=== PATIENT | female | born 1995 | race Caucasian/White ===

== ENCOUNTER 2020-11-06 04:05 | Inpatient (IN) | payer OTHER ==
[2020-11-06] MEDS ORDERED: Ampicillin 2 GM in Sodium Chloride 0.9% 100 ML IV ONE (04:21)
[2020-11-06] MEDS ORDERED: Carboprost Tromethamine 250 MCG/1 ML Amp IM PRN (04:21)
[2020-11-06] MEDS ORDERED: Nalbuphine 10 MG/1 ML Vial IVPUSH PRN (04:21)
[2020-11-06] MEDS ORDERED: Butorphanol 1 MG/ML SDV IVPUSH PRN (04:21)
[2020-11-06] MEDS ORDERED: Sodium Chloride 0.9% 2.5 ML Syringe FLUSH PRN (04:21)
[2020-11-06] MEDS ORDERED: Sodium Chloride 0.9% 10 ML SDV IV PRN (04:21)
[2020-11-06] MEDS ORDERED: Misoprostol 200 MCG Tab PO PRN (04:21)
[2020-11-06] MEDS ORDERED: Water For Irrigation,Sterile 1,000 ML Container IRR PRN (04:21)
[2020-11-06] MEDS ORDERED: Tranexamic Acid 1,000 MG in Sodium Chloride 0.9% 100 ML IV PRN (04:21)
[2020-11-06] MEDS ORDERED: Sodium Chloride 0.9% 10 ML Syringe FLUSH PRN (04:21)
[2020-11-06] MEDS ORDERED: Methylergonovine 0.2 MG/1 ML Amp IM PRN (04:21)
[2020-11-06] MEDS ORDERED: Lidocaine 1% 50 ML MDV INJECT PRN (04:21)
[2020-11-06] MEDS ORDERED: Oxytocin/0.9 % Sodium Chloride 30 UNIT/500 ML BAG IV SCH (04:30)
[2020-11-06] MEDS ORDERED: Lactated Ringers 1,000 ML IV SCH (04:30)
[2020-11-06] MEDS ORDERED: Ampicillin 2 GM Vial ONE (04:37)
[2020-11-06] MEDS ORDERED: Sodium Chloride 0.9% 100 ML ONE (04:37)
[2020-11-06] MEDS ORDERED: Bisacodyl 10 MG Supp RECTAL PRN (06:41)
[2020-11-06] MEDS ORDERED: Witch Hazel Medicated Pads 40/Jar TOP PRN (06:41)
[2020-11-06] MEDS ORDERED: Benzocaine/Menthol 20%-0.5% Spray 78 GM Cannister TOP PRN (06:41)
[2020-11-06] MEDS ORDERED: oxyCODONE 5 MG Tab PO PRN (06:41)
[2020-11-06] MEDS ORDERED: Ibuprofen 400 MG Tab PO PRN (06:41)
[2020-11-06] MEDS ORDERED: Acetaminophen 500 MG Tab PO PRN (06:41)
[2020-11-06] MEDS ORDERED: Lanolin 100% Cream 7 GM Tube TOP PRN (06:41)
--- NOTE | 2020-11-06 06:51 | PCM.DEL ---
L & D Note - General Info Date of Service: 11/06/20 Mother's Due Date: 11/13/20 - Delivery Note Labor: Spontaneous Delivery Outcome: Livebirth Infant Delivery Method: Spontaneous Vaginal Delivery-Single Delivery Mode: Spontaneous Presentation: Left Occiput Anterior (GENE) Nuchal Cord: Present (nuchal x3) Anesthesia Type: None Amniotic Fluid Description: Clear Episiotomy Type: None Laceration: 3rd Degree, Perineal Suture type: Vicryl Suture size: 2-0 Placenta: Intact, Spontaneous Cord: 3 Vessels Estimated Blood Loss: 300 Resuscitation Needed: Yes [place]: Suctioned, Bulb Syringe, Cathether, Stimulated, Warmed, Hollis Used, Warmer Used Provider: Cary Wood Score 1 min: 7 Score 5 min: 8 Score 10 min: 9 Second Stage Interventions: Reports: Second Nurse Assessed Progress of Descent, Second Nurse Reviewed Contraction Pattern, Second Nurse Reviewed Heart Tones, Encouragement Given, Laboring Down, Pushing Effectively, Pushing, Left Side, Pushing, Pulls Own Legs Back, Pushing, Stirrups/Leg Supports Delivery Comments (Free Text/Narrative):: Delivery of male, [id number] at [id number] - General Info Date of Service: 11/06/20 - Patient Data Weight - Most Recent: 193 lb Lab Results Last 24 Hours: Laboratory Results - last 24 hr 11/06/20 11/06/20 11/06/20 Range/Units 04:30 04:30 04:41 WBC 12.83 H (4.0-11.0) K/uL RBC 4.42 (4.30-5.90) M/uL Hgb 12.9 (12.0-16.0) g/dL Hct 38.1 (36.0-46.0) % MCV 86.2 (80.0-98.0) fL MCH 29.2 (27.0-32.0) pg MCHC 33.9 (31.0-37.0) g/dL RDW Std Deviation 43.1 (28.0-62.0) fl RDW Coeff of Reed 14 (11.0-15.0) % Plt Count 214 (150-400) K/uL MPV 11.30 (7.40-12.00) fL Nucleated RBC % 0.0 /100WBC Nucleated RBCs # 0 K/uL SARS-CoV-2 RNA ([place]) NEGATIVE (NEGATIVE) Blood Type O POSITIVE Antibody Screen NEGATIVE Med Orders - Current: Current Medications Butorphanol Tartrate (Butorphanol 1 Mg/Ml Sdv) 1 mg IVPUSH Q1H PRN PRN Reason: Pain (severe 7-10) Oxytocin/Sodium Chloride (Oxytocin 30 Unit/500 Ml-Ns) 30 unit in 500 mls @ 999 mls/hr IV TITRATE [facility] Tranexamic Acid 1,000 mg/ (Sodium Chloride) 110 mls @ 660 mls/hr IV ONETIME PRN PRN Reason: Bleeding Lactated Ringer's (Ringers, Lactated) 1,000 mls @ 150 mls/hr IV ASDIRECTED SACHIN Last Admin: 11/06/20 04:40 Dose: 150 mls/hr Documented by: Lidocaine HCl (Lidocaine 1% 50 Ml Mdv) 50 ml INJECT ONETIME PRN PRN Reason: Laceration repair Last Admin: 11/06/20 06:17 Dose: 50 ml Documented by: Methylergonovine Maleate (Methylergonovine 0.2 Mg/1 Ml Amp) 0.2 mg IM ASDIRECTED PRN PRN Reason: Post Hemorrhage Nalbuphine HCl (Nalbuphine 10 Mg/1 Ml Vial) 10 mg IVPUSH Q1H PRN PRN Reason: Pain (severe 7-10) Sodium Chloride (Sodium Chloride 0.9% 10 Ml Syringe) 10 ml FLUSH ASDIRECTED PRN PRN Reason: Keep Vein Open Sodium Chloride (Sodium Chloride 0.9% 2.5 Ml Syringe) 2.5 ml FLUSH ASDIRECTED PRN PRN Reason: Keep Vein Open Sodium Chloride (Sodium Chloride 0.9% 10 Ml Sdv) 10 ml IV ASDIRECTED PRN PRN Reason: IV Use Sterile Water (Water For Irrigation,Sterile 1,000 Ml Container) 1,000 ml IRR ASDIRECTED PRN PRN Reason: delivery Discontinued Medications Ampicillin Sodium (Ampicillin 2 Gm Vial) Confirm Administered Dose 2 gm .ROUTE .STK-MED ONE Stop: 11/06/20 04:38 Last Admin: 11/06/20 04:45 Dose: 2 gm Documented by: Carboprost Tromethamine (Carboprost Tromethamine 250 Mcg/1 Ml Amp) 250 mcg IM ASDIRECTED PRN PRN Reason: Post Hemorrhage Ampicillin Sodium 2 gm/ Sodium (Chloride) 100 mls @ 200 mls/hr IV ONETIME ONE Stop: 11/06/20 04:50 Ampicillin Sodium 1 gm/ Sodium (Chloride) 50 mls @ 100 mls/hr IV Q4H SACHIN Sodium Chloride (Normal Saline) Confirm Administered Dose 100 mls @ as directed .ROUTE .STK-MED ONE Stop: 11/06/20 04:38 Last Admin: 11/06/20 04:45 Dose: 200 mls/hr Documented by: Misoprostol (Misoprostol 200 Mcg Tab) 200 mcg PO ONETIME PRN PRN Reason: Post Hemorrhage - Problem List & Annotations (1) Vaginal delivery SNOMED Code(s): 190911910 Code(s): O80 - ENCOUNTER FOR FULL-TERM UNCOMPLICATED DELIVERY Status: Acute Current Visit: Yes - Problem List Review Problem List Initiated/Reviewed/Updated: Yes - Assessment Assessment:: Pt is a 24yo G1 now P1 female s/p , PPD0 - Plan Plan:: Rh+, Ab screen negative, rubella immune Tdap received at 28w, GBS positive with 1 dose antibiotics given PO pain medications ordered PRN Regular diet as tolerated Encourage ambulation and fluid intake when able nursing assistance PRN Dispo: stable, admit to , Anticipate routine PP cares with discharge 24-48 hours post delivery
[2020-11-06] MEDS ORDERED: Ampicillin 1 GM in Sodium Chloride 0.9% 50 ML IV SCH (08:30)
[2020-11-06] MEDS: Docusate Sodium 100 MG Cap PO PRN ×2 (09:17→20:34)
[2020-11-06] MEDS: Ibuprofen 800 MG Tab PO PRN ×2 (09:32→20:34)
--- NOTE | 2020-11-06 11:47 | OR ---
SURGEON: Cary Wood M.D. DATE OF PROCEDURE: 11/06/2020 PREOPERATIVE DIAGNOSES: 1. A 39-week intrauterine . 2. Active labor. 3. Group B strep positive. POSTOPERATIVE DIAGNOSES: 1. A 39-week intrauterine . 2. Active labor. 3. Group B strep positive. PROCEDURE: Spontaneous vaginal delivery, third-degree midline laceration repair. PRIMARY SURGEON: Cary Wood M.D. ANESTHESIA: Local. ESTIMATED BLOOD LOSS: 300 mL. COMPLICATIONS: None known. FINDINGS: Viable male. scores of 7 at 1 minute and 8 at 5 minutes. Weight 7 pounds 10 ounces. Spontaneous delivery, intact placenta, 3-vessel cord. DISPOSITION: Infant to nursery, mom in LDRP. PROCEDURE DETAILS: Bere is a 24-year-old G1, P0, at 39 weeks' gestation who presented on the global sales executive of 11/06/2020, with contractions since midnight and which intensified after 3:00 a.m. Upon presentation, she was found to be 8 cm dilated. She quickly progressed to 10 cm dilatation, at +2 station. heart tones were category 1. The patient was admitted, and routine labs were drawn. COVID was negative. She did receive a single dose of ampicillin. Shortly thereafter, began pushing efforts and was able to push to a +4 station with delivery. The patient was placed in modified dorsal lithotomy position, prepped and draped in the usual aseptic manner. With pushing efforts, was able to deliver infant's head atraumatically spontaneously, followed by anterior shoulder, posterior shoulder, and the remainder of the body. Nuchal cord x3 which was loose was reduced manually. 's oropharynx and nares were bulb suctioned. Infant was handed off to her mother with attending nursery staff at her side. After a delay, cord was clamped x2 and cut. Cord arterial, cord venous, cord blood sampling obtained. Light pressure was applied. The placenta was delivered spontaneously intact. Vigorous fundal uterine massage was then applied while 30 units Pitocin was delivered in 500 mL of IV fluid. Upon inspection of cervix, vaginal sidewall, and perineum, there was found to be a third-degree midline laceration which was repaired by reapproximating the levator muscle with [id number] sutures x3 using 2-0 Vicryl, followed by repair of the remainder of second-degree in the usual fashion. The region had been prepped with approximately 15 mL of 1% lidocaine prior to repair. Uterus remained firm. Sponge, instrument, and needle count was correct. Hemostasis evident. Patient remained in LDRP and to nursery. JOSTIN / GIFTY /[id number]
[2020-11-06] MEDS: Acetaminophen 500 MG Tab PO PRN ×2 (16:38→20:36)
[2020-11-07] MEDS: Ibuprofen 800 MG Tab PO PRN ×3 (05:17→20:25)
--- NOTE | 2020-11-07 08:07 | PCM.PNPP ---
- General Info Date of Service: 11/07/20 Functional Status: Reports: Pain Controlled, Tolerating Diet, Ambulating, Urinating - Review of Systems General: Reports: Fatigue. Denies: Fever, Weakness Pulmonary: Denies: Shortness of Breath Cardiovascular: Denies: Chest Pain, Palpitations, Lightheadedness Gastrointestinal: Denies: Abdominal Pain, Nausea, Vomiting Genitourinary: Denies: Flank Pain Musculoskeletal: Reports: No Symptoms Skin: Reports: No Symptoms Neurological: Reports: No Symptoms Psychiatric: Reports: No Symptoms - General Info Date of Service: 11/07/20 - Patient Data Vital Signs - Most Recent: Last Vital Signs Temp 36.3 C 11/07/20 05:00 Pulse 93 11/07/20 05:00 Resp 12 11/07/20 05:00 BP 122/67 11/07/20 05:00 Pulse Ox 96 11/07/20 05:00 Weight - Most Recent: 87.543 kg Lab Results - Last 24 Hours: Laboratory Results - last 24 hr 11/07/20 Range/Units 06:27 Hgb 9.7 L (12.0-16.0) g/dL Hct 28.4 L (36.0-46.0) % Med Orders - Current: Current Medications Acetaminophen (Acetaminophen 500 Mg Tab) 500 mg PO Q4H PRN PRN Reason: Pain (mild 1-3) Acetaminophen (Acetaminophen 500 Mg Tab) 1,000 mg PO Q4H PRN PRN Reason: Pain (mild 1-3) Last Admin: 11/06/20 20:36 Dose: 1,000 mg Documented by: Benzocaine/Menthol (Benzocaine/Menthol 20%-0.5% [place] 78 Gm Cannister) 78 gm TOP ASDIRECTED PRN PRN Reason: Perineal Comfort Measure Last Admin: 11/06/20 09:16 Dose: 1 bottle Documented by: Bisacodyl (Bisacodyl 10 Mg Supp) 10 mg RECTAL ONETIME PRN PRN Reason: Constipation Butorphanol Tartrate (Butorphanol 1 Mg/Ml Sdv) 1 mg IVPUSH Q1H PRN PRN Reason: Pain (severe 7-10) Docusate Sodium (Docusate Sodium 100 Mg Cap) 100 mg PO Q12H PRN PRN Reason: Constipation Last Admin: 11/06/20 20:34 Dose: 100 mg Documented by: Emollient Ointment (Lanolin 100% Cream 7 Gm Tube) 0 gm TOP ASDIRECTED PRN PRN Reason: Sore Nipples Last Admin: 11/06/20 09:16 Dose: 1 applic Documented by: Oxytocin/Sodium Chloride (Oxytocin 30 Unit/500 Ml-Ns) 30 unit in 500 mls @ 999 mls/hr IV TITRATE [facility] Last Infusion: 11/06/20 06:28 Dose: 250 mls/hr Documented by: Tranexamic Acid 1,000 mg/ (Sodium Chloride) 110 mls @ 660 mls/hr IV ONETIME PRN PRN Reason: Bleeding Lactated Ringer's (Ringers, Lactated) 1,000 mls @ 150 mls/hr IV ASDIRECTED [facility] Last Admin: 11/06/20 04:40 Dose: 150 mls/hr Documented by: Ibuprofen (Ibuprofen 400 Mg Tab) 400 mg PO Q4H PRN PRN Reason: Pain (mild 1-3) Ibuprofen (Ibuprofen 800 Mg Tab) 800 mg PO Q6H PRN PRN Reason: Pain (mild 1-3) Last Admin: 11/07/20 05:17 Dose: 800 mg Documented by: Lidocaine HCl (Lidocaine 1% 50 Ml Mdv) 50 ml INJECT ONETIME PRN PRN Reason: Laceration repair Last Admin: 11/06/20 06:17 Dose: 50 ml Documented by: Methylergonovine Maleate (Methylergonovine 0.2 Mg/1 Ml Amp) 0.2 mg IM ASDIRECTED PRN PRN Reason: Post Hemorrhage Nalbuphine HCl (Nalbuphine 10 Mg/1 Ml Vial) 10 mg IVPUSH Q1H PRN PRN Reason: Pain (severe 7-10) Oxycodone HCl (Oxycodone 5 Mg Tab) 5 mg PO Q2H PRN PRN Reason: Pain (severe 7-10) Sodium Chloride (Sodium Chloride 0.9% 10 Ml Syringe) 10 ml FLUSH ASDIRECTED PRN PRN Reason: Keep Vein Open Sodium Chloride (Sodium Chloride 0.9% 2.5 Ml Syringe) 2.5 ml FLUSH ASDIRECTED PRN PRN Reason: Keep Vein Open Sodium Chloride (Sodium Chloride 0.9% 10 Ml Sdv) 10 ml IV ASDIRECTED PRN PRN Reason: IV Use Sterile Water (Water For Irrigation,Sterile 1,000 Ml Container) 1,000 ml IRR ASDIRECTED PRN PRN Reason: delivery Witch Arlyn (Witch Arlyn Medicated Pads 40/Jar) 1 pad TOP ASDIRECTED PRN PRN Reason: comfort care Last Admin: 11/06/20 09:15 Dose: 1 container Documented by: Discontinued Medications Ampicillin Sodium (Ampicillin 2 Gm Vial) Confirm Administered Dose 2 gm .ROUTE .STK-MED ONE Stop: 11/06/20 04:38 Last Admin: 11/06/20 04:45 Dose: 2 gm Documented by: Carboprost Tromethamine (Carboprost Tromethamine 250 Mcg/1 Ml Amp) 250 mcg IM ASDIRECTED PRN PRN Reason: Post Hemorrhage Ampicillin Sodium 2 gm/ Sodium (Chloride) 100 mls @ 200 mls/hr IV ONETIME ONE Stop: 11/06/20 04:50 Ampicillin Sodium 1 gm/ Sodium (Chloride) 50 mls @ 100 mls/hr IV Q4H SACHIN Sodium Chloride (Normal Saline) Confirm Administered Dose 100 mls @ as directed .ROUTE .STK-MED ONE Stop: 11/06/20 04:38 Last Admin: 11/06/20 04:45 Dose: 200 mls/hr Documented by: Misoprostol (Misoprostol 200 Mcg Tab) 200 mcg PO ONETIME PRN PRN Reason: Post Hemorrhage - Infant Interaction Support Person: Significant Other - Recovery Exam Fundal Tone: Firm Fundal Level: 1 Fingerbreadths Below Umbilicus Fundal Placement: Midline Lochia Amount: Scant Lochia Color: Rubra/Red Perineum Description: Other (see below) Other Perinuem Description: 3rd degree laceration Episiotomy/Laceration: Approximated Bladder Status: Voiding Urinary Elimination: Voided - Exam General: Alert, Oriented Lungs: Normal Respiratory Effort Cardiovascular: Regular Rate, Regular Rhythm GI/Abdominal Exam: Normal Bowel Sounds, Soft Extremities: Pedal Edema. No: Hermes's Sign Skin: Warm, Dry, Intact Neurological: No New Focal Deficit Psy/Mental Status: Alert, Normal Affect, Normal Mood - Problem List & Annotations (1) Vaginal delivery SNOMED Code(s): 957377328 Code(s): O80 - ENCOUNTER FOR FULL-TERM UNCOMPLICATED DELIVERY Status: Acute Current Visit: Yes - Problem List Review Problem List Initiated/Reviewed/Updated: Yes - Assessment Assessment:: Pt is a 24yo G1 now P1 female s/p with 3rd MLL repaired - Plan Plan:: Continue PP cares. VS are stable, labs reassuring.
[2020-11-07] MEDS: Acetaminophen 500 MG Tab PO PRN (18:05)
[2020-11-07] MEDS: Docusate Sodium 100 MG Cap PO PRN (20:27)
--- NOTE | 2020-11-08 07:36 | PCM.PNPP ---
<PrettyDaylin - Last Filed: 11/08/20 07:33> - General Info Date of Service: 11/08/20 Admission Dx/Problem (Free Text): Subjective Update: Pt doing well. Pain controlled. Ambulating okay. Urinating okay. No BMs but taking stool softener Functional Status: Reports: Pain Controlled - Review of Systems Pulmonary: Reports: No Symptoms Cardiovascular: Reports: No Symptoms Gastrointestinal: Reports: No Symptoms Genitourinary: Reports: No Symptoms - General Info Date of Service: 11/08/20 - Patient Data Vital Signs - Most Recent: Last Vital Signs Temp 98 F 11/08/20 04:00 Pulse 85 11/08/20 04:00 Resp 14 11/08/20 04:00 BP 117/64 11/08/20 04:00 Pulse Ox 98 11/08/20 04:00 Weight - Most Recent: 87.543 kg Med Orders - Current: Current Medications Acetaminophen (Acetaminophen 500 Mg Tab) 500 mg PO Q4H PRN PRN Reason: Pain (mild 1-3) Acetaminophen (Acetaminophen 500 Mg Tab) 1,000 mg PO Q4H PRN PRN Reason: Pain (mild 1-3) Last Admin: 11/07/20 18:05 Dose: 1,000 mg Documented by: Benzocaine/Menthol (Benzocaine/Menthol 20%-0.5% [place] 78 Gm Cannister) 78 gm TOP ASDIRECTED PRN PRN Reason: Perineal Comfort Measure Last Admin: 11/06/20 09:16 Dose: 1 bottle Documented by: Bisacodyl (Bisacodyl 10 Mg Supp) 10 mg RECTAL ONETIME PRN PRN Reason: Constipation Butorphanol Tartrate (Butorphanol 1 Mg/Ml Sdv) 1 mg IVPUSH Q1H PRN PRN Reason: Pain (severe 7-10) Docusate Sodium (Docusate Sodium 100 Mg Cap) 100 mg PO Q12H PRN PRN Reason: Constipation Last Admin: 11/07/20 20:27 Dose: 100 mg Documented by: Emollient Ointment (Lanolin 100% Cream 7 Gm Tube) 0 gm TOP ASDIRECTED PRN PRN Reason: Sore Nipples Last Admin: 11/06/20 09:16 Dose: 1 applic Documented by: Oxytocin/Sodium Chloride (Oxytocin 30 Unit/500 Ml-Ns) 30 unit in 500 mls @ 999 mls/hr IV TITRATE [facility] Last Infusion: 11/06/20 06:28 Dose: 250 mls/hr Documented by: Tranexamic Acid 1,000 mg/ (Sodium Chloride) 110 mls @ 660 mls/hr IV ONETIME PRN PRN Reason: Bleeding Lactated Ringer's (Ringers, Lactated) 1,000 mls @ 150 mls/hr IV ASDIRECTED [facility] Last Admin: 11/06/20 04:40 Dose: 150 mls/hr Documented by: Ibuprofen (Ibuprofen 400 Mg Tab) 400 mg PO Q4H PRN PRN Reason: Pain (mild 1-3) Ibuprofen (Ibuprofen 800 Mg Tab) 800 mg PO Q6H PRN PRN Reason: Pain (mild 1-3) Last Admin: 11/07/20 20:25 Dose: 800 mg Documented by: Lidocaine HCl (Lidocaine 1% 50 Ml Mdv) 50 ml INJECT ONETIME PRN PRN Reason: Laceration repair Last Admin: 11/06/20 06:17 Dose: 50 ml Documented by: Methylergonovine Maleate (Methylergonovine 0.2 Mg/1 Ml Amp) 0.2 mg IM ASDIRECTED PRN PRN Reason: Post Hemorrhage Nalbuphine HCl (Nalbuphine 10 Mg/1 Ml Vial) 10 mg IVPUSH Q1H PRN PRN Reason: Pain (severe 7-10) Oxycodone HCl (Oxycodone 5 Mg Tab) 5 mg PO Q2H PRN PRN Reason: Pain (severe 7-10) Sodium Chloride (Sodium Chloride 0.9% 10 Ml Syringe) 10 ml FLUSH ASDIRECTED PRN PRN Reason: Keep Vein Open Sodium Chloride (Sodium Chloride 0.9% 2.5 Ml Syringe) 2.5 ml FLUSH ASDIRECTED PRN PRN Reason: Keep Vein Open Sodium Chloride (Sodium Chloride 0.9% 10 Ml Sdv) 10 ml IV ASDIRECTED PRN PRN Reason: IV Use Sterile Water (Water For Irrigation,Sterile 1,000 Ml Container) 1,000 ml IRR ASDIRECTED PRN PRN Reason: delivery Witch Arlyn (Witch Arlyn Medicated Pads 40/Jar) 1 pad TOP ASDIRECTED PRN PRN Reason: comfort care Last Admin: 11/06/20 09:15 Dose: 1 container Documented by: Discontinued Medications Ampicillin Sodium (Ampicillin 2 Gm Vial) Confirm Administered Dose 2 gm .ROUTE .STK-MED ONE Stop: 11/06/20 04:38 Last Admin: 11/06/20 04:45 Dose: 2 gm Documented by: Carboprost Tromethamine (Carboprost Tromethamine 250 Mcg/1 Ml Amp) 250 mcg IM ASDIRECTED PRN PRN Reason: Post Hemorrhage Ampicillin Sodium 2 gm/ Sodium (Chloride) 100 mls @ 200 mls/hr IV ONETIME ONE Stop: 11/06/20 04:50 Ampicillin Sodium 1 gm/ Sodium (Chloride) 50 mls @ 100 mls/hr IV Q4H SACHIN Sodium Chloride (Normal Saline) Confirm Administered Dose 100 mls @ as directed .ROUTE .STK-MED ONE Stop: 11/06/20 04:38 Last Admin: 11/06/20 04:45 Dose: 200 mls/hr Documented by: Misoprostol (Misoprostol 200 Mcg Tab) 200 mcg PO ONETIME PRN PRN Reason: Post Hemorrhage - Infant Interaction Disposition, : [place] to Nursery Infant Feeding: Bottle Fed Infant, Continues to Breastfeed Support Person: Significant Other - Recovery Exam Fundal Tone: Firm Fundal Level: 1 Fingerbreadths Below Umbilicus Fundal Placement: Midline Lochia Amount: Scant Lochia Color: Rubra/Red Perineum Description: Other (see below) Other Perinuem Description: 3rd degree laceration repaired Episiotomy/Laceration: Approximated Bladder Status: Voiding Urinary Elimination: Voided - Exam General: Alert, Oriented Lungs: Clear to Auscultation, Normal Respiratory Effort Cardiovascular: Regular Rate, Regular Rhythm GI/Abdominal Exam: Soft, Non-Tender - Problem List & Annotations (1) Vaginal delivery SNOMED Code(s): 773988319 Code(s): O80 - ENCOUNTER FOR FULL-TERM UNCOMPLICATED DELIVERY Status: Acute Current Visit: Yes - Problem List Review Problem List Initiated/Reviewed/Updated: Yes - Assessment Assessment:: Pt is a 24yo G1 now P1 female s/p with 3rd MLL repaired. Pt is healing well - Plan Plan:: Continue PP cares. Anticipate discharge today <Cary Wood - Last Filed: 11/08/20 09:57> - Patient Data Vital Signs - Most Recent: Last Vital Signs Temp 36.1 C 11/08/20 08:38 Pulse 95 11/08/20 08:38 Resp 18 11/08/20 08:38 BP 126/83 11/08/20 08:38 Pulse Ox 98 11/08/20 08:38 Med Orders - Current: Current Medications Acetaminophen (Acetaminophen 500 Mg Tab) 500 mg PO Q4H PRN PRN Reason: Pain (mild 1-3) Acetaminophen (Acetaminophen 500 Mg Tab) 1,000 mg PO Q4H PRN PRN Reason: Pain (mild 1-3) Last Admin: 11/07/20 18:05 Dose: 1,000 mg Documented by: Benzocaine/Menthol (Benzocaine/Menthol 20%-0.5% [place] 78 Gm Cannister) 78 gm TOP ASDIRECTED PRN PRN Reason: Perineal Comfort Measure Last Admin: 11/06/20 09:16 Dose: 1 bottle Documented by: Bisacodyl (Bisacodyl 10 Mg Supp) 10 mg RECTAL ONETIME PRN PRN Reason: Constipation Butorphanol Tartrate (Butorphanol 1 Mg/Ml Sdv) 1 mg IVPUSH Q1H PRN PRN Reason: Pain (severe 7-10) Docusate Sodium (Docusate Sodium 100 Mg Cap) 100 mg PO Q12H PRN PRN Reason: Constipation Last Admin: 11/08/20 08:46 Dose: 100 mg Documented by: Emollient Ointment (Lanolin 100% Cream 7 Gm Tube) 0 gm TOP ASDIRECTED PRN PRN Reason: Sore Nipples Last Admin: 11/06/20 09:16 Dose: 1 applic Documented by: Oxytocin/Sodium Chloride (Oxytocin 30 Unit/500 Ml-Ns) 30 unit in 500 mls @ 999 mls/hr IV TITRATE [facility] Last Infusion: 11/06/20 06:28 Dose: 250 mls/hr Documented by: Tranexamic Acid 1,000 mg/ (Sodium Chloride) 110 mls @ 660 mls/hr IV ONETIME PRN PRN Reason: Bleeding Lactated Ringer's (Ringers, Lactated) 1,000 mls @ 150 mls/hr IV ASDIRECTED [facility] Last Admin: 11/06/20 04:40 Dose: 150 mls/hr Documented by: Ibuprofen (Ibuprofen 400 Mg Tab) 400 mg PO Q4H PRN PRN Reason: Pain (mild 1-3) Ibuprofen (Ibuprofen 800 Mg Tab) 800 mg PO Q6H PRN PRN Reason: Pain (mild 1-3) Last Admin: 11/08/20 08:35 Dose: 800 mg Documented by: Lidocaine HCl (Lidocaine 1% 50 Ml Mdv) 50 ml INJECT ONETIME PRN PRN Reason: Laceration repair Last Admin: 11/06/20 06:17 Dose: 50 ml Documented by: Methylergonovine Maleate (Methylergonovine 0.2 Mg/1 Ml Amp) 0.2 mg IM ASDIRECTED PRN PRN Reason: Post Hemorrhage Nalbuphine HCl (Nalbuphine 10 Mg/1 Ml Vial) 10 mg IVPUSH Q1H PRN PRN Reason: Pain (severe 7-10) Oxycodone HCl (Oxycodone 5 Mg Tab) 5 mg PO Q2H PRN PRN Reason: Pain (severe 7-10) Sodium Chloride (Sodium Chloride 0.9% 10 Ml Syringe) 10 ml FLUSH ASDIRECTED PRN PRN Reason: Keep Vein Open Sodium Chloride (Sodium Chloride 0.9% 2.5 Ml Syringe) 2.5 ml FLUSH ASDIRECTED PRN PRN Reason: Keep Vein Open Sodium Chloride (Sodium Chloride 0.9% 10 Ml Sdv) 10 ml IV ASDIRECTED PRN PRN Reason: IV Use Sterile Water (Water For Irrigation,Sterile 1,000 Ml Container) 1,000 ml IRR ASDIRECTED PRN PRN Reason: delivery Witch Arlyn (Witch Arlyn Medicated Pads 40/Jar) 1 pad TOP ASDIRECTED PRN PRN Reason: comfort care Last Admin: 11/06/20 09:15 Dose: 1 container Documented by: Discontinued Medications Ampicillin Sodium (Ampicillin 2 Gm Vial) Confirm Administered Dose 2 gm .ROUTE .STK-MED ONE Stop: 11/06/20 04:38 Last Admin: 11/06/20 04:45 Dose: 2 gm Documented by: Carboprost Tromethamine (Carboprost Tromethamine 250 Mcg/1 Ml Amp) 250 mcg IM ASDIRECTED PRN PRN Reason: Post Hemorrhage Ampicillin Sodium 2 gm/ Sodium (Chloride) 100 mls @ 200 mls/hr IV ONETIME ONE Stop: 11/06/20 04:50 Ampicillin Sodium 1 gm/ Sodium (Chloride) 50 mls @ 100 mls/hr IV Q4H [place]ACH[place] Sodium Chloride (Normal Saline) Confirm Administered Dose 100 mls @ as directed .ROUTE .STK-MED ONE Stop: 11/06/20 04:38 Last Admin: 11/06/20 04:45 Dose: 200 mls/hr Documented by: Misoprostol (Misoprostol 200 Mcg Tab) 200 mcg PO ONETIME PRN PRN Reason: Post Hemorrhage - Problem List & Annotations (1) Vaginal delivery SNOMED Code(s): 153643004 Code(s): O80 - ENCOUNTER FOR FULL-TERM UNCOMPLICATED DELIVERY Status: Acute Current Visit: Yes - Plan Plan:: Patient seen and examined--agree with MSIV note. Discharge to home today. Discharge instructions reviewed. Follow up at [facility] 4 weeks.
[2020-11-08] MEDS: Ibuprofen 800 MG Tab PO PRN (08:35)
[2020-11-08] MEDS: Docusate Sodium 100 MG Cap PO PRN (08:46)
== END 2020-11-08 12:39 | disposition home or self-care (01) | DRG 768 ==
LOC: MW.OBCHECK 04:05 → MW.OB 04:06 → MW.OBCHECK 04:21 → OBSVTOIN 06:10 → MW.OB 11:54
PROVIDERS: ADMIT Obstetrics & Gynecology; ATTEND Obstetrics & Gynecology
PROC: 10E0XZZ Delivery of Products of Conception, External Approach (ICD-10-PCS; principal; 2020-11-06)
PROC: 0DQR0ZZ Repair Anal Sphincter, Open Approach (ICD-10-PCS; 2020-11-06)
PROC: 10907ZC Drainage of Amniotic Fluid, Therapeutic from Products of Conception, Via Natural or Artificial Opening (ICD-10-PCS; 2020-11-06)
DX: O99.824 Streptococcus B carrier state complicating childbirth (principal); Z37.0 Single live birth; Z3A.39 39 weeks gestation of pregnancy; O69.81X0 Labor and delivery complicated by cord around neck, without compression, not applicable or unspecified; O70.20 Third degree perineal laceration during delivery, unspecified; Z20.822 Contact with and (suspected) exposure to COVID-19
CPT/HCPCS: 36415; 59025; 59409; 82803; 85014; 85018; 85027; 86592; 86850; 86900; 86901; A9270-GY; J0290; J2001; J2590; J7120; U0002

== ENCOUNTER 2022-02-26 12:07 | Emergency (ER) | payer BC, OTHER ==
[2022-02-26] MEDS ORDERED: Sodium Chloride 0.9% 1,000 ML IV ONE ×2 (12:38→13:45)
[2022-02-26] MEDS ORDERED: Ketorolac 30 MG/ML SDV IVPUSH ONE (12:39)
[2022-02-26] MEDS ORDERED: Acetaminophen 500 MG Tab PO ONE (12:39)
[2022-02-26 13:18] LABS: CARBON DIOXIDE,CO2 25.8 mmol/L (21.0-32.0); POTASSIUM,K 3.8 mmol/L (3.5-5.1)
[2022-02-26 13:22] LABS: CORONAVIRUS COVID-19 NAA NEGATIVE (NEGATIVE); INFLUENZA A NAA NEGATIVE (NEGATIVE); INFLUENZA B NAA NEGATIVE (NEGATIVE)
[2022-02-26] MEDS ORDERED: cefTRIAXone 1 GM in Sodium Chloride 0.9% 50 ML IV ONE (14:49)
[2022-02-26] MEDS ORDERED: Ibuprofen 800 MG Tab PO ONE (14:55)
== END 2022-02-26 16:14 | disposition home or self-care (01) ==
LOC: MW.ED 12:07
DX: N39.0 Urinary tract infection, site not specified (principal); B34.9 Viral infection, unspecified; R00.0 Tachycardia, unspecified; Z20.822 Contact with and (suspected) exposure to COVID-19
CPT/HCPCS: 0240U; 36415; 71045; 80053; 81001; 81025; 83605; 85025; 85379; 86308; 87040; 87086; 93005; 96361; 96365; 96375; 99284; A9270; J0696; J1885; J7030